=== PATIENT | female | born 1945 | race African-American/Black ===

== ENCOUNTER 2016-07-04 12:57 | Outpatient (CLI) | payer OTHER ==
[~2016-07-04 12:57] MED LIST: ASPI81TA2 PO; DIPH25CA83 PO; FURO-149 PO; GLYB5TAB7 PO; INSU100V11 SUBCUT; INSU100V26 SUBCUT; METF-303 PO; MONT10TA22 PO; POTA-118 PO; SIMV40TA5 PO
== END 2016-07-04 19:59 | disposition home or self-care (01) ==
LOC: SMA 12:57
PROVIDERS: ATTEND Family Medicine
DX: Z12.31 Encounter for screening mammogram for malignant neoplasm of breast (principal)
CPT/HCPCS: 77067; G0202

== ENCOUNTER 2017-07-07 13:21 | Outpatient (CLI) | payer OTHER | END 2017-07-07 20:41 | disposition home or self-care (01) | LOC: SMA 13:21 | PROVIDERS: ATTEND Family Medicine | DX: Z12.31 Encounter for screening mammogram for malignant neoplasm of breast (principal) | CPT/HCPCS: 77067 ==

== ENCOUNTER 2018-09-07 13:18 | Outpatient (CLI) | payer OTHER ==
[~2018-09-07 13:18] MED LIST changes: +ASPI-1155 PO; -ASPI81TA2 PO; -METF-303 PO; +METF-379 PO; -POTA-118 PO; +POTA10TA15 PO
== END 2018-09-07 21:16 | disposition home or self-care (01) ==
LOC: SMA 13:18
PROVIDERS: ATTEND Family Medicine
DX: Z12.31 Encounter for screening mammogram for malignant neoplasm of breast (principal)
CPT/HCPCS: 77067

== ENCOUNTER 2020-08-24 11:18 | Outpatient (CLI) | payer OTHER ==
[~2020-08-24 11:18] MED LIST changes: +SIMV-46 PO; -SIMV40TA5 PO
== END 2020-08-24 20:32 | disposition home or self-care (01) ==
LOC: SMA 11:18
PROVIDERS: ATTEND Family Medicine
DX: Z12.31 Encounter for screening mammogram for malignant neoplasm of breast (principal); N64.89 Other specified disorders of breast
CPT/HCPCS: 77067

== ENCOUNTER 2021-12-23 00:06 | Emergency (ER) | payer OTHER ==
[~2021-12-23] VITALS: Ht 154.9 cm; Wt 99.8 kg
[2021-12-23 00:18] VITALS: BP_SYST 143
--- NOTE | 2021-12-23 00:33 | NUR ---
Pt from home with CP that started today, medial, non-radiating and intermittent. Pt reports SOB, 99% on RA, even and unlabored resps. Pt has diabetic leg ulcer on left lower leg. Pt BP 143/117, made aware.
--- NOTE | 2021-12-23 00:54 | NUR ---
PRESENTS TO THE ER ACCOMPANIED VIA SON W/ C/O MID TO LEFT SIDE CHEST PAIN. ONSET BEGAN EARLIER THIS AFTERNOON. SHE ALSO ENDORSES COUGH AND WHEEZING. REPORTS HX OF ASTHMA. STATES THAT SHE DID NOT USE HER INHALER PRESCRIBED. DENIES FEVERS, CHILLS. SHE ALSO C/O RIGHT FLANK PAIN W/ RADIATION TO RIGHT GROIN. SHE DENIES DYSURIA OR HX OF KIDNEY STONE. SHE ALSO REPORTS LLE DIABETIC ULCER. SHE REPORTS SHE IS WAITING ON THE REFERRAL TO [facility]. DRAPED IN GOWN AND PLACED ON MARINE DRAFTER. BED IN LOW POSITION, WHEELS LOCKED AND SR UPX 2. AT BEDSIDE FOR EVAL.
[2021-12-23] MEDS ORDERED: OXYCODONE/ACETAMINOPHEN *10*mg/325 mg TABLET PO ONE (02:00)
[2021-12-23] MEDS ORDERED: methocarbamoL 500 MG TABLET PO ONE (02:00)
[2021-12-23 02:36] LABS: ANION GAP 4 (5-15); CALCIUM 9.4 mg/dL (8.4-11.0); CHLORIDE 99 mmol/L (98-107); CREATININE 1.56 mg/dL (0.55-1.30); POTASSIUM 4.3 mmol/L (3.5-5.1); UREA NITROGEN, BLOOD 18 mg/dL (8-21)
[2021-12-23 02:37] LABS: BASOPHILS % (AUTO) 0.5 % (0.0-2.0); EOSINOPHILS # (AUTO) 0.3 K/uL (0.0-0.4); EOSINOPHILS % (AUTO) 4.4 % (0.0-4.0); HEMATOCRIT 34.1 % (36-48); LYMPHOCYTES # (AUTO) 1.8 K/uL (1.0-5.5); LYMPHOCYTES % (AUTO) 27.1 % (20.5-51.5); MEAN CORPUSCULAR VOLUME 86 fL (79.0-98.0); MONOCYTES # (AUTO) 0.9 K/uL (0.0-1.0); MONOCYTES % (AUTO) 13.6 % (1.7-9.3); NEUTROPHILS # (AUTO) 3.7 K/uL (1.8-7.7); NEUTROPHILS % (AUTO) 54.4 % (40.0-70.0); PLATELET COUNT (AUTO) 236 K/uL (130-430); RED BLOOD CELL COUNT(AUTO) 3.97 MIL/uL (4.2-6.2); RED CELL DISTRIBUTION WIDTH 14.1 % (9.0-15.0); WHITE BLOOD COUNT (AUTO) 6.7 K/uL (4.8-10.8)
--- NOTE | 2021-12-23 02:41 | NUR ---
LAB CALLED TO REPORT GLUCOSE 405. MD AWARE. CURRENT FSBS 378 CHECKED BY IMAN DUTTA. ALSO AWARE. NO NEW ORDERS AT THIS TIME.
[2021-12-23 02:42] LABS: GLUCOSE 405 mg/dL (70-99)
[2021-12-23 02:44] LABS: ALANINE AMINOTRANSFERASE 24 U/L (12-78); ALBUMIN 3.2 g/dL (3.4-4.8); ASPARTATE AMINOTRANSFERASE 22 U/L (10-37); TOTAL BILIRUBIN 0.5 mg/dL (0.0-1.0)
--- NOTE | 2021-12-23 04:19 | NUR ---
LYING SEMI FOWLERS ON STRETCHER WITH EYES CLOSED. EASILY AROUSED. REQUESTING "SOMETHING FOR COUGH." MD AWARE. AWAITING ORDERS.
[2021-12-23] MEDS ORDERED: NACL 0.9% 1,000 ML IV ONE (04:30)
[2021-12-23] MEDS ORDERED: guaiFENesin 200 MG/10 ML UDC PO ONE (04:30)
[2021-12-23] MEDS ORDERED: METH-634 PO (05:39)
--- NOTE | 2021-12-23 05:39 | NUR ---
IVF COMPLETE. TOLERATED WELL. SHE REPORTS THAT SHE HAS NOT HAD ANY COUGHING AFTER RECEIVING THE ANDREW. AT BEDSIDE. SHE REPORTS SHE IS READY FOR D/C. TO D/C .
[2021-12-23] MEDS ORDERED: BACI1PAC12 TP (05:44)
--- NOTE | 2021-12-23 05:49 | NUR ---
REPEAT FSBS AFTER IVF 364. AWARE.
[2021-12-23 06:02] VITALS: BP_SYST 149
--- NOTE | 2021-12-23 06:03 | NUR ---
Patient given written and verbal discharge instructions and verbalizes understanding. ER MD discussed with patient the results and treatment provided. Patient in stable condition. ID arm band removed. IV catheter removed intact and dressing applied, no active bleeding. TELFA APPLIED TO LLE AND WRAPPED W/ KERLIX. SECURED DRESSING WITH PAPER TAPE. TOLERATED WELL. Rx of BACITRACIN AND METHOCARBAMOL given. Patient educated on pain management and to follow up with PMD. Pain Scale . Opportunity for questions provided and answered. Medication side effect fact sheet provided.
== END 2021-12-23 06:03 | disposition home or self-care (01) ==
LOC: SED 00:06
DX: M54.16 Radiculopathy, lumbar region (principal); I87.2 Venous insufficiency (chronic) (peripheral); L98.8 Other specified disorders of the skin and subcutaneous tissue; I11.0 Hypertensive heart disease with heart failure; I50.9 Heart failure, unspecified; E11.9 Type 2 diabetes mellitus without complications; Z88.5 Allergy status to narcotic agent; Z79.899 Other long term (current) drug therapy
CPT/HCPCS: 99284; 96360; 71045; 80053; 82962; 83880; 85025; 84484; 36415; J7030

== ENCOUNTER 2022-02-07 09:39 | Outpatient (CLI) | payer OTHER ==
[~2022-02-07 09:39] MED LIST changes: +BACI1PAC12 TP; +METH-634 PO
== END 2022-02-07 20:37 | disposition home or self-care (01) ==
LOC: SMA 09:39
PROVIDERS: ATTEND Family Medicine
DX: Z12.31 Encounter for screening mammogram for malignant neoplasm of breast (principal)
CPT/HCPCS: 77067